=== PATIENT | female | born 1935 | race American Indian/Alaskan Native ===

== ENCOUNTER 2017-08-07 18:17 | Inpatient (IN) | payer MEDICARE, BC ==
[2017-08-07 18:29] VITALS: BMI 28.8
[2017-08-07] MEDS ORDERED: Morphine 2 mg/ml ISec IVP STA (19:13)
[2017-08-07 19:58] LABS: URINE BILIRUBIN NEGATIVE (NEGATIVE); URINE BLOOD NEGATIVE (NEGATIVE); URINE COLOR LIGHT YELLOW (YELLOW); URINE GLUCOSE (UA) NEGATIVE (NEGATIVE); URINE KETONE NEGATIVE (NEGATIVE); URINE LEUKOCYTE ESTERASE SMALL Leu/uL (NEGATIVE); URINE PROTEIN NEGATIVE mg/dL (<30 mg/dL); URINE UROBILINOGEN 0.2 E.U./dL (<1 E.U./dL)
[2017-08-07 20:03] LABS: URINE APPEARANCE CLEAR (CLEAR); URINE BACTERIA TRACE (NEG); URINE RBC 0 - 2 /hpf (0-2)
[2017-08-07 20:06] LABS: BASO # 0.01 K/mm3 (0.0-2.0); BASO % 0.2 % (0.0-3.0); EOS # 0.2 (0.0-0.7); EOS % 3.9 % (1.5-5.0); GRAN # 3.25 (1.4-6.5); GRAN % 69.6 % (50.0-68.0); HEMATOCRIT 34.4 % (36.0-48.0); LYMPH % 21.6 % (22.0-35.0); MEAN CELL VOLUME 90.3 fl (80.0-105.0); MEAN CORPUSCULAR HEMOGLOBIN 29.4 pg (25.0-35.0); MEAN CORPUSCULAR HGB CONC 32.6 g/dl (31.0-37.0); MEAN PLATELET VOLUME 11.1 fl (7.0-11.0); MONO # 0.2 (0.1-0.6); MONO % 4.7 % (1.0-6.0); RED CELL DISTRIBUTION WIDTH 15.6 % (11.5-14.5); WHITE BLOOD COUNT 4.7 10^3/ul (4.5-11.0)
[2017-08-07 20:15] LABS: ALB/GLOB RATIO 1.3 (1.1-1.8); ALKALINE PHOSPHATASE 91 U/L (38-126); ALT/SGPT 18 U/L (7-56); AST/SGOT 22 U/L (14-36); BILIRUBIN,TOTAL 0.4 mg/dL (0.2-1.3); BLOOD UREA NITROGEN 35 mg/dL (7-21); CALCIUM 9.3 mg/dL (8.4-10.5); CARBON DIOXIDE 24 mmol/L (21-33); CHLORIDE 109 mmol/L (98-107); GFR AFRICAN-AMERICAN 37; GLUCOSE,RANDOM 93 mg/dL (70-110); POTASSIUM 4.6 mmol/L (3.6-5.0); SODIUM 141 mmol/L (132-148)
[2017-08-07 20:27] LABS: TROPONIN I < 0.01 ng/mL
--- NOTE | 2017-08-07 20:36 | CT ---
EXAM: CT Lumbar Spine Without Intravenous Contrast EXAM DATE/TIME: 08/07/2017 7:13 PM CLINICAL HISTORY: The patient age is 82 years old and is female; Pain; Lumbago with sciatica; Left; Additional info: Back pain Facility exam id and description: Ct lumbs lumbar spine w/o contrast TECHNIQUE: Axial computed tomography images of the lumbar spine without intravenous contrast. All CT scans at this facility use one or more dose reduction techniques, viz.: automated exposure control; ma/kV adjustment per patient size (including targeted exams where dose is matched to indication; i.e. head); or iterative reconstruction technique. Coronal and sagittal reformatted images were created and reviewed. COMPARISON: No relevant prior studies available. FINDINGS: Vertebrae: The lumbar vertebral bodies are normal in height, without acute fracture. There is abnormal morphology of the right L1 transverse process, which may be developmental or due to prior trauma. There is grade I anterolisthesis of L4 on L5. Discs/spinal canal/neural foramina: Degenerative bulge/osteophyte complexes are identified diffusely within the lumbar spine. There is moderate narrowing of the thecal sac at L4-5, with mild narrowing of the thecal sac at L5-S1. There is narrowing of both lateral recesses at these levels. Neural foraminal narrowing is identified diffusely within the lumbar spine, severe bilateral neural foraminal narrowing at L5-S1. Vasculature: There is atherosclerotic calcification of the abdominal aorta. Gallbladder and bile ducts: The gallbladder is mildly distended with isodense sludge. The gallbladder is incompletely visualized. Kidneys and ureters: There is mild fullness of the right renal collecting system and ureter, without an obstructing calculus. There is no left hydronephrosis. Stomach and bowel: Sigmoid diverticulosis is identified. 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 IMPRESSION: 1. The lumbar vertebral bodies are normal in height, without acute fracture. 2. There is abnormal morphology of the right L1 transverse process, which may be developmental or due to prior trauma. 3. There is grade I anterolisthesis of L4 on L5. 4. Degenerative bulge/osteophyte complexes are identified diffusely within the lumbar spine. There is moderate narrowing of the thecal sac at L4-5, with mild narrowing of the thecal sac at L5-S1. There is narrowing of both lateral recesses at these levels. 5. Neural foraminal narrowing is identified diffusely within the lumbar spine, severe bilateral neural foraminal narrowing at L5-S1. This can be further evaluated with MRI. 6. 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 7. The gallbladder is mildly distended with isodense sludge. The gallbladder is incompletely visualized. 8. Incidental/non-acute findings are described above.
[2017-08-07] MEDS ORDERED: HYDROmorphone 2 mg/ml ISec IVP STA (21:22)
[2017-08-07] MEDS ORDERED: HYDROmorphone 1 mg/ml ISec IVP STA (21:23)
[2017-08-07] MEDS ORDERED: Sodium Chloride 0.9% 1,000 ML IV SCH (21:30)
--- NOTE | 2017-08-07 22:16 | ED PDOC ---
Arrival/HPI - General Chief Complaint: Hip Pain Time Seen by Provider: 08/07/17 19:02 Historian: Patient - History of Present Illness Narrative History of Present Illness (Text): 08/07/17 19:05 Delroy Pickens is an 82 year old female complaining of lower back pain for a few hours. Patient states that her pain worsens with any movement. Patient denies any fever, chills, chest pain, shortness of breath, nausea, vomiting, diarrhea, urinary symptoms, neck pain, headache, dizziness, or any other complaints. Time/Duration: 4-6 hours Symptom Onset: Gradual Symptom Course: Unchanged Activities at Onset: Light Context: Home Past Medical History - Provider Review Nursing Documentation Reviewed: Yes - Infectious Disease Hx of Infectious Diseases: None - Tetanus Immunization Tetanus Immunization: Up to Date - Cardiac Hx Hypertension: Yes Hx Pacemaker: No - Pulmonary Hx Asthma: No Hx Chronic Obstructive Pulmonary Disease (COPD): No Hx Emphysema: No - Neurological Hx Paralysis: No - Renal Hx Renal Disorder: No - Hematological/Oncological Hx Blood Transfusions: No Hx Blood Transfusion Reaction: No - Musculoskeletal/Rheumatological Hx Musculoskeletal Disorders: Yes - Gastrointestinal Hx Gastroesophageal Reflux: No - Psychiatric Hx Psychophysiologic Disorder: No Hx Anxiety: No Hx Bipolar Disorder: No Hx Depression: No Hx Emotional Abuse: No Hx Hallucinations: No Hx Panic Disorder: No Hx Post Traumatic Stress Disorder: No Hx Psychosis: No Hx Physical Abuse: No Hx Schizophrenia: No Hx Sexual Abuse: No Hx Substance Use: No - Past Surgical History Past Surgical History: No Previous - Anesthesia Hx Anesthesia: Yes Hx Anesthesia Reactions: No Hx Malignant Hyperthermia: No - Suicidal Assessment Feels Threatened In Home Enviroment: No Family/Social History - Physician Review Nursing Documentation Reviewed: Yes Family/Social History: No Known Family HX Smoking Status: Never Smoked Hx Alcohol Use: No Hx Substance Use: No Hx Substance Use Treatment: No Allergies/Home Meds Allergies/Adverse Reactions: Allergies No Known Allergies Allergy (Verified 12/31/13 11:38) Home Medications: Home Meds Medication Instructions Recorded Confirmed Hydrochlorothiazide/Valsarta 1 tab PO DAILY 01/07/12 02/03/15 [Diovan Hct 12.5 mg-320 mg] Amlodipine Besylate 10 mg PO DAILY 04/29/12 02/03/15 Review of Systems - Physician Review All systems were reviewed & negative as marked: Yes - Review of Systems Constitutional: absent: Fevers, Night Sweats Eyes: absent: Vision Changes ENT: absent: Hearing Changes Respiratory: absent: SOB, Cough Cardiovascular: absent: Chest Pain Gastrointestinal: absent: Abdominal Pain Genitourinary Female: absent: Dysuria Musculoskeletal: Back Pain. absent: Arthralgias Skin: absent: Rash, Pruritis Neurological: absent: Headache, Dizziness Endocrine: absent: Diaphoresis Hemo/Lymphatic: absent: Adenopathy Psychiatric: absent: Anxiety, Depression Physical Exam Vital Signs Reviewed: Yes Vital Signs Temp Pulse Resp BP Pulse Ox 08/07/17 21:58 57 L 16 135/42 L 96 08/07/17 19:38 90 16 105/79 100 08/07/17 18:28 98.2 F 62 18 147/80 99 Temperature: Afebrile Blood Pressure: Normal Pulse: Regular Respiratory Rate: Normal Appearance: Positive for: Well-Appearing, Non-Toxic, Comfortable Pain Distress: None Mental Status: Positive for: Alert and Oriented X 3 - Systems Exam Head: Present: Atraumatic, Normocephalic Pupils: Present: PERRL Extroacular Muscles: Present: EOMI Conjunctiva: Present: Normal Mouth: Present: Moist Mucous Membranes Neck: Present: Normal Range of Motion Respiratory/Chest: Present: Clear to Auscultation, Good Air Exchange. No: Respiratory Distress, Accessory Muscle Use Cardiovascular: Present: Regular Rate and Rhythm, Normal S1, S2. No: Murmurs Abdomen: Present: Normal Bowel Sounds. No: Tenderness, Distention, Peritoneal Signs Back: Present: Paraspinal Tenderness (on left side) Upper Extremity: Present: Normal Inspection. No: Cyanosis, Edema Lower Extremity: Present: Normal Inspection. No: Edema Neurological: Present: GCS=15, CN II-XII Intact, Speech Normal Skin: Present: Warm, Dry, Normal Color. No: Rashes Psychiatric: Present: Alert, Oriented x 3, Normal Insight, Normal Concentration Medical Decision Making ED Course and Treatment: 08/07/17 22:17 Impression: 82 year old female complaining of lower back pain, worse on left than right, for a few hours tonight. Differential Diagnosis included but are not limited to: Plan: -- EKG -- Urine Culture -- Dilaudid, Morphine, and IV fluids -- Reassess and disposition Prior Visits: Notes and results from previous visits were reviewed. Patient was last seen in the emergency department on 02/03/15 for right upper extremity numbness for a few hours. Patient was discharged home. Progress Notes: 08/07/17 22:31 CT Lumbar Spine Without Intravenous Contrast: Creator : JASON FRAZIER FINDINGS: Vertebrae: The lumbar vertebral bodies are normal in height, without acute fracture. There is abnormal morphology of the right L1 transverse process, which may be developmental or due to prior trauma. There is grade I anterolisthesis of L4 on L5. Discs/spinal canal/neural foramina: Degenerative bulge/osteophyte complexes are identified diffusely within the lumbar spine. There is moderate narrowing of the thecal sac at L4-5, with mild narrowing of the thecal sac at L5-S1. There is narrowing of both lateral recesses at these levels. Neural foraminal narrowing is identified diffusely within the lumbar spine, severe bilateral neural foraminal narrowing at L5-S1. Vasculature: There is atherosclerotic calcification of the abdominal aorta. Gallbladder and bile ducts: The gallbladder is mildly distended with isodense sludge. The gallbladder is incompletely visualized. Kidneys and ureters: There is mild fullness of the right renal collecting system and ureter, without an obstructing calculus. There is no left hydronephrosis. Stomach and bowel: Sigmoid diverticulosis is identified. 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 IMPRESSION: 1. The lumbar vertebral bodies are normal in height, without acute fracture. 2. There is abnormal morphology of the right L1 transverse process, which may be developmental or due to prior trauma. 3. There is grade I anterolisthesis of L4 on L5. 4. Degenerative bulge/osteophyte complexes are identified diffusely within the lumbar spine. There is moderate narrowing of the thecal sac at L4-5, with mild narrowing of the thecal sac at L5-S1. There is narrowing of both lateral recesses at these levels. 5. Neural foraminal narrowing is identified diffusely within the lumbar spine , severe bilateral neural foraminal narrowing at L5-S1. This can be further evaluated with MRI. 6. 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 7. The gallbladder is mildly distended with isodense sludge. The gallbladder is incompletely visualized. 8. Incidental/non-acute findings are described above. 08/07/17 22:33 case d/w dr olson for dr ridley will obs for intractable back pain - Lab Interpretations Lab Results: 08/07/17 19:55 08/07/17 19:55 Lab Results 08/07/17 19:55: Sodium 141, Potassium 4.6, Chloride 109 H, Carbon Dioxide 24, Anion Gap 13, BUN 35 H, Creatinine 1.6 H, Est GFR ( Amer) 37, Est GFR ( Non-Af Amer) 31, Random Glucose 93, Calcium 9.3, Total Bilirubin 0.4, AST 22, ALT 18, Alkaline Phosphatase 91, Troponin I < 0.01, Total Protein 7.0, Albumin 4.0, Globulin 3.0, Albumin/Globulin Ratio 1.3 08/07/17 19:55: WBC 4.7 D, RBC 3.81, Hgb 11.2 L, Hct 34.4 L, MCV 90.3, MCH 29.4 , MCHC 32.6, RDW 15.6 H, Plt Count 188, MPV 11.1 H, Gran % 69.6 H, Lymph % (Auto ) 21.6 L, Alcorn % (Auto) 4.7, Eos % (Auto) 3.9, Baso % (Auto) 0.2, Gran # 3.25, Lymph # 1.0 L, Alcorn # 0.2, Eos # 0.2, Baso # 0.01 08/07/17 19:48: Urine Color Light yellow, Urine Appearance Clear, Urine pH 6.0, Ur Specific [place] 1.015, Urine Protein Negative, Urine Glucose (UA) Negative, Urine Ketones Negative, Urine Blood Negative, Urine Nitrate Negative, Urine Bilirubin Negative, Urine Urobilinogen 0.2, Ur Leukocyte Esterase Small H, Urine RBC 0 - 2, Urine WBC 2 - 5, Ur Epithelial Cells 1 - 3, Urine Bacteria Trace I have reviewed the lab results: Yes - RAD Interpretation Radiology Orders: 08/07/17 19:13 LUMBAR SPINE W/O CONTRAST [CT] Stat - Medication Orders Current Medication Orders: Sodium Chloride (Sodium Chloride 0.9%) 1,000 mls @ 80 mls/hr IV .[id number] MARCIO Last Admin: 08/07/17 21:46 Dose: 80 mls/hr eMAR Start Stop Document 08/07/17 21:46 HI (Rec: 08/07/17 21:46 HI [id number]) Intravenous Solution Start Date 08/07/17 Start Time 21:46 Oxycodone/Acetaminophen (Percocet 5/325 Mg Tab) 1 tab PO Q4H PRN PRN Reason: Pain, moderate (4-7) Stop: 08/10/17 22:31 Discontinued Medications Hydromorphone HCl (Dilaudid) 1 mg IVP STAT STA Stop: 08/07/17 21:24 Last Admin: 08/07/17 21:46 Dose: 1 mg MAR Pain Assessment Document 08/07/17 21:46 HI (Rec: 08/07/17 21:46 [id number]) Pain Reassessment Is this a pain reassessment? Yes Sleep Is patient sleeping during reassessment? No Presence of Pain Presence of Pain Yes Location Left, Right or Bilateral Left Pain Location Body Site Hip Description Description Constant IVP Administration Document 08/07/17 21:46 HI (Rec: 08/07/17 21:46 HI [id number]) Charges for Administration # of IVP Administrations 1 Morphine Sulfate (Morphine) 2 mg IVP STAT STA Stop: 08/07/17 19:14 Last Admin: 08/07/17 19:58 Dose: 2 mg MAR Pain Assessment Document 08/07/17 19:58 HI (Rec: 08/07/17 19:58 HI [id number]) Pain Reassessment Is this a pain reassessment? No Sleep Is patient sleeping during reassessment? No Presence of Pain Presence of Pain Yes Pain Scale Used Pain Scale Used Numeric Location Left, Right or Bilateral Left Pain Location Body Site Hip IVP Administration Document 08/07/17 19:58 HI (Rec: 08/07/17 19:58 HI [id number]) Charges for Administration # of IVP Administrations 1 Re-Assess: MAR Pain Assessment Document 08/07/17 20:58 HI (Rec: 08/07/17 21:46 HI [id number]) Pain Reassessment Is this a pain reassessment? Yes Sleep Is patient sleeping during reassessment? No Presence of Pain Presence of Pain Yes - Scribe Statement The provider has reviewed the documentation as recorded by the Justin Raman Provider Scribe Attestation: All medical record entries made by the Scribe were at my direction and personally dictated by me. I have reviewed the chart and agree that the record accurately reflects my personal performance of the history, physical exam, medical decision making, and the department course for this patient. I have also personally directed, reviewed, and agree with the discharge instructions and disposition Disposition/Present on Arrival - Present on Arrival Any Indicators Present on Arrival: No History of DVT/PE: No History of Uncontrolled Diabetes: No Urinary Catheter: No History of Decub. Ulcer: No History Surgical Site Infection Following: None - Disposition Have Diagnosis and Disposition been Completed?: Yes Diagnosis: Intractable back pain Disposition: HOSPITALIZED Disposition Time: 22:00 Condition: FAIR Referrals: Miguel Edwards Reluc, [Primary Care Provider] - Follow up with primary Forms: [employer] (Eth[place]ian)
[2017-08-07] MEDS ORDERED: Oxycodone/Acetaminophen 5/325 mg Tab PO PRN (22:30)
[2017-08-08] MEDS ORDERED: Pneumococcal 23-Valent Vaccine IM ONE (00:04)
[2017-08-08] MEDS ORDERED: Influenza Vaccine 60 mcg/0.5 mL SYR (4YR UP) IM ONE (00:04)
[2017-08-08] MEDS ORDERED: Barium Sulfate Susp 2.1% w/v, 2.0% w/w 450 mL Bottle PO ONE (08:17)
--- NOTE | 2017-08-08 11:20 | CP.PCM.CON ---
<Oskar Angela - Last Filed: 08/08/17 11:22> History of Present Illness - History of Present Illness History of Present Illness: PGY4 Initial GI Consult Delroy Pickens is a 82F w/ a hx of HTN and anemia who presented to the ED with complaints of left sided pain. Pt reports that the pain started 1.5 weeks ago and the onset was gradual. She notes the pain is located beneath the ribs at the mid-axcillary line on the left side. She states that the pain is sharp. Aggrevating factors are flexion and side bending. She denies any association with food. Pain does not radiate. She notes normal BM with constipation, melena , or BRBPR. She does take iron supplements for anemia. She is able to tolerate regular diet without nausea or vomiting. She recalls having a colonoscopy by Dr. Graham in 2014 years ago for anemia. She does not remember the results, but EMR pathology revealed gastritis and x1 cecal tubular adenoma. CT lumbar done in the Er revealed L4/L5 and L5/S1 foraminal stenosis. PMHx: HTN, anemia PSHx: denies Social Hx: Denies smoking, ETOH, and illicit drug use Family Hx: denies any hx of colon ca ROS: 12-point ROS conducted, neg other than above Past Patient History - Infectious Disease Hx of Infectious Diseases: None - Tetanus Immunizations Tetanus Immunization: Up to Date - Past Social History Smoking Status: Former Smoker - CARDIAC Hx Hypertension: Yes Hx Pacemaker: No - PULMONARY Hx Asthma: No Hx Chronic Obstructive Pulmonary Disease (COPD): No Hx Emphysema: No - NEUROLOGICAL HX Cerebrovascular Accident: No Hx Dementia: No Hx Seizures: No - RENAL Hx Chronic Kidney Disease: No - HEMATOLOGICAL/ONCOLOGICAL Hx Cancer: No - MUSCULOSKELETAL/RHEUMATOLOGICAL Hx Falls: No - GASTROINTESTINAL Hx Gastroesophageal Reflux: No - PSYCHIATRIC Hx Psychophysiologic Disorder: No Hx Anxiety: No Hx Bipolar Disorder: No Hx Depression: No Hx Emotional Abuse: No Hx Hallucinations: No Hx Panic Symptoms: No Hx Post Traumatic Stress Disorder: No Hx Psychosis: No Hx Physical Abuse: No Hx Schizophrenia: No Hx Sexual Abuse: No - SURGICAL HISTORY Hx Surgeries: Yes - ANESTHESIA Hx Anesthesia: Yes Hx Anesthesia Reactions: No Hx Malignant Hyperthermia: No Meds Allergies/Adverse Reactions: Allergies Allergy/AdvReac Type Severity Reaction Status Date / Time No Known Allergies Allergy Verified 12/31/13 11:38 - Medications Medications: Current Medications Amlodipine Besylate (Norvasc) 10 mg PO DAILY COUNTS INCLUDE 234 BEDS AT THE [facility] Last Admin: 08/08/17 10:18 Dose: 10 mg Sodium Chloride (Sodium Chloride 0.9%) 1,000 mls @ 80 mls/hr IV .[id number] COUNTS INCLUDE 234 BEDS AT THE [facility] Last Admin: 08/07/17 21:46 Dose: 80 mls/hr Tramadol HCl (Ultram) 50 mg PO TID PRN PRN Reason: Pain, moderate (4-7) Physical Exam - Constitutional Appears: Well - Head Exam Head Exam: ATRAUMATIC, NORMOCEPHALIC - Eye Exam Eye Exam: Normal appearance - ENT Exam ENT Exam: Mucous Membranes Moist - Respiratory Exam Respiratory Exam: Clear to Auscultation Bilateral, NORMAL BREATHING PATTERN. absent: Rales, Rhonchi, Wheezes, Respiratory Distress - Cardiovascular Exam Cardiovascular Exam: REGULAR RHYTHM, +S1, +S2 - GI/Abdominal Exam GI & Abdominal Exam: Normal Bowel Sounds, Soft. absent: Guarding, Organomegaly , Rigid, Tenderness - Extremities Exam Extremities exam: Negative for: joint swelling, pedal edema - Neurological Exam Neurological exam: Alert, Oriented x3 - Psychiatric Exam Psychiatric exam: Normal Affect, Normal Mood - Skin Skin Exam: Dry, Intact, Normal Color, Warm Results - Vital Signs Recent Vital Signs: Last Vital Signs Temp 98.8 F 08/08/17 08:00 Pulse 80 08/08/17 08:00 Resp 20 08/08/17 08:00 BP 134/53 L 08/08/17 10:18 Pulse Ox 97 08/08/17 08:00 - Labs Result Diagrams: 08/07/17 19:55 08/07/17 19:55 Assessment & Plan - Assessment and Plan (Free Text) Assessment: Delroy Pickens is a 82F w/ hx of anemia and HTn who presents to the ER with left sided flank pain Etiology likely musculoskeletal Musculoskeletal left sided flank pain Anemia Diverticulosis Plan: -no evidence of intraabdominal etiology of pain -CT abd/pelv ordered by primary team -Labs WNL -recommend further management as per primary team -will await CT imaging today -colonscopy and EGD pathology reviewed -continue diet as tolerated -If CT abd revealed no significant pathology, will sign off D/W Dr. Pearce <Kaden Pearce Y - Last Filed: 08/08/17 15:28> Meds - Medications Medications: Current Medications Amlodipine Besylate (Norvasc) 10 mg PO DAILY COUNTS INCLUDE 234 BEDS AT THE [facility] Last Admin: 08/08/17 10:18 Dose: 10 mg Sodium Chloride (Sodium Chloride 0.9%) 1,000 mls @ 80 mls/hr IV .[id number] COUNTS INCLUDE 234 BEDS AT THE [facility] Last Admin: 08/07/17 21:46 Dose: 80 mls/hr Tramadol HCl (Ultram) 50 mg PO TID PRN PRN Reason: Pain, moderate (4-7) Results - Vital Signs Recent Vital Signs: Last Vital Signs Temp 98.8 F 08/08/17 08:00 Pulse 80 08/08/17 08:00 Resp 20 08/08/17 08:00 BP 134/53 L 08/08/17 10:18 Pulse Ox 97 08/08/17 08:00 - Labs Result Diagrams: 08/07/17 19:55 08/07/17 19:55 Attending/Attestation - Attestation I have personally seen and examined this patient.: Yes I have fully participated in the care of the patient.: Yes I have reviewed all pertinent clinical information: Yes Notes (Text): 08/08/17 15:19 I have seen and examined patient with GI fellow. Agree with above documentation with the following additions. In brief, this is an 82 year old female with history of HTN, anemia who presents to hospital with complaint of progressive left sided flank pain for the past 2 weeks. She describes a sharp, 6/10 intensity pain that is non-radiating, worse on movement and not associated with food consumption. She denies dysuria, hematuria, nausea, vomiting, fever/ chills, weight loss, abdominal pain, diarrhea, or NSAID use. She denies any recent mechanical falls. She claims to have had an EGD/colonoscopy nearly 4-5 years ago which showed gastritis and adenomatous polyps. This morning she was able to tolerate full breakfast without difficulty. HTN Anemia Left flank pain - resolved. Likely musculoskeletal in origin, CT L spine shows lumbar foraminal stenosis. - Diet as tolerated - CT abdomen reviewed by me showing no gross intra abdominal abnormalities - Suggest heating pad to affected site twice daily along with short course of NSAID therapy - Recommend outpatient elective surveillance colonoscopy - No ongoing GI issues, will sign off case. Please reconsult as necessary, thank you.
--- NOTE | 2017-08-08 13:18 | CT ---
PROCEDURE: CT Abdomen and Pelvis without intravenous contrast HISTORY: abd pain COMPARISON: None. TECHNIQUE: Without contrast.. Contrast Dose: Radiation dose: Total exam DLP = 894 mGy-cm. This CT exam was performed using one or more of the following dose reduction techniques: Automated exposure control, adjustment of the mA and/or kV according to patient size, and/or use of iterative reconstruction technique. FINDINGS: LOWER THORAX: Unremarkable. LIVER: Unremarkable. No gross lesion or ductal dilatation. GALLBLADDER AND BILE DUCTS: Unremarkable. PANCREAS: Unremarkable. No gross lesion or ductal dilatation. SPLEEN: Unremarkable. ADRENALS: Unremarkable. No mass. KIDNEYS AND URETERS: Unremarkable. No hydronephrosis. No solid mass. VASCULATURE: Unremarkable. No aortic aneurysm. BOWEL: Unremarkable. No obstruction. No gross mural thickening. APPENDIX: Unremarkable. Normal appendix. PERITONEUM: Unremarkable. No free fluid. No free air. LYMPH NODES: Unremarkable. No enlarged lymph nodes. BLADDER: Unremarkable. REPRODUCTIVE: Unremarkable. BONES: No acute fracture. OTHER FINDINGS: None. IMPRESSION: No acute intra-abdominal findings
--- NOTE | 2017-08-08 13:39 | RAD ---
PROCEDURE: Radiographs of the pelvis. HISTORY: lt flank pain COMPARISON: None. FINDINGS: BONES: Pelvic Bones: Unremarkable. Hips: Grossly unremarkable. JOINTS: Sacroiliac Joints: Unremarkable. Pubic Symphysis: Unremarkable. OTHER FINDINGS: None. IMPRESSION: Unremarkable radiographs of the pelvis.
--- NOTE | 2017-08-08 14:01 | CARD ---
APPROVED REPORT EKG Measurement Heart [id number] <Conclusion> Sinus bradycardia Otherwise normal ECG
--- NOTE | 2017-08-08 14:13 | HP ---
HISTORY OF PRESENT ILLNESS: She is an 82-year-old female who presents to the emergency room with few hours of severe low back pain when she came to the emergency room, cannot stand, cannot walk, cannot do anything, writhing in pain. When I saw her this morning, she is having left abdominal pain more than the left low pain, still cannot move much, fairly uncomfortable. PAST MEDICAL HISTORY: She has past medical history of hypertension. PAST SURGICAL HISTORY: No previous surgeries. FAMILY HISTORY: No known family history. SOCIAL HISTORY: No smoker. No drinking. No alcohol. ALLERGIES: NO KNOWN DRUG ALLERGIES. MEDICATIONS: She takes Diovan HCT and amlodipine. REVIEW OF SYSTEMS: No acute vision changes or hearing changes. No sore throat. No shortness of breath. No chest pain. There is abdominal pain on the left side. No problems urinating. There is severe lower back pain on the left side. No skin itching or rashes. No headache or dizziness. No sweating. No anxiety or depression. There is severe left-sided back pain and left side abdominal pain. PHYSICAL EXAMINATION GENERAL: Uncomfortable at this time with pain, on Percocet. Well-appearing. Alert and oriented x3. VITAL SIGNS: She has temperature 98.2, pulse 90, respiratory rate 18, blood pressure 147/80, and O2 sat 96%. HEENT: Head is atraumatic and normocephalic. Extraocular muscles are intact. Pupils are equal and reactive to light and accommodation. Throat is moist. NECK: Supple. HEART: Regular rate. Normal S1 and S2. LUNGS: Decreased breath sounds, but clear to auscultation. ABDOMEN: Soft. Mild tenderness in the left side of the abdomen, maybe mild discomfort. No guarding or rebound. Decreased bowel sounds were present. She has left-sided tenderness. BACK: Tender to palpation first when we poked around. EXTREMITIES: No edema of the lower extremities. NEUROLOGIC: GCS is 15. Cranial nerves II through XII grossly intact. Speech is normal. SKIN: Warm and dry. No apparent rashes or ulcers. Alert and oriented x3. LYMPHATICS: Thyroid is midline. No palpable appreciable lymphadenopathy. LABORATORY DATA: She had multiple tests. She has urine, which has small leukocytes. Sodium 141, potassium 4.6, BUN 35, creatinine 1.6, she is also dehydrated, GFR is 31, sugar is 93. Calcium is 9.3, total bilirubin is 0.4, AST is 22, ALT is 18, alkaline phosphatase 91. Troponin I is less than 0.01. Total protein is 7. Albumin is 4, globulin is 3. White count is 4.7, hemoglobin 11.2, hematocrit 34.4, platelets 188. She had a lumbar spine CT, which showed lumbar vertebral bodies with normal height without acute fractures. There was abnormal pathology of the right L1 transverse process may be developmental or trauma. Grade 1 anterolisthesis at L4-L5, degenerative bulge within the lumbar spine, moderate narrowing of the thecal sac L4-L5, mild narrowing of the thecal sac L5-S1, neuroforaminal narrowing is identified, diffuse disc bulge in the lumbar spine, severe bilateral neuroforaminal L5-S1. 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 Gallbladder was mildly distended and sludge, gallbladder is incompletely visualized. They need to get an MRI of the lumbar spine, I will order that. Continue with the IV fluids. I ordered an MRI. I have ordered Orthopedics and GI for the abdominal pain, for low back pain. We will continue with the aggressive treatment and care and change it to inpatient because she is probably going to need to have subacute rehab as she looks weaker and she looks like she is in pain. I think she will need to do that before she goes on. Candido Greco DO MTDD
--- NOTE | 2017-08-08 14:33 | MRI ---
PROCEDURE: MR LUMBAR SPINE WITHOUT CONTRAST HISTORY: pain COMPARISON: None available. TECHNIQUE: Multiecho multiplanar sequences were performed through the lumbar spine without the use of intravenous contrast. FINDINGS: Normal lumbar lordosis. Vertebral body heights are preserved. Marrow signal unremarkable. Conus medullaris unremarkable at the level of T12 Paraspinal soft tissues are unremarkable. T12-L1: No disc herniation, spinal canal stenosis or neural foraminal narrowing. L1-2: No disc herniation, spinal canal stenosis or neural foraminal narrowing. Mild disc degeneration L2-3: No disc herniation, spinal canal stenosis or neural foraminal narrowing. Mild disc bulge and degeneration. Mild facet arthropathy L3-4: No disc herniation, spinal canal stenosis or neural foraminal narrowing. Mild disc bulge. Mild facet arthropathy L4-5: There is severe facet arthropathy. There is a moderate disc bulge. This produces a severe degree of central canal stenosis. This is best seen on image 7 series 7 L5-S1: There is severe disc degeneration and severe foraminal stenosis bilaterally OTHER FINDINGS: None. IMPRESSION: Severe central canal stenosis at L4-5. Severe bilateral foraminal stenosis at L5-S1.
--- NOTE | 2017-08-08 17:18 | US ---
HISTORY: evaluate GB, r/o biliar stones COMPARISON: 12/31/2013 abdominal ultrasound TECHNIQUE: Sonographic evaluation of the abdomen. FINDINGS: LIVER: Measures 11.6 cm. Normal echogenicity of the liver parenchyma. Patent portal vein. Portal venous flow: Hepatopetal. UnremarkeableNo mass. No intrahepatic bile duct dilatation. GALLBLADDER: Cholelithiasis. Negative study for gallbladder wall thickening, pericholecystic fluid, sonographic Odonnell's sign. Incidental finding(s): Sludge identified COMMON BILE DUCT: Measures 4.5 mm. No stones. No dilatation. PANCREAS: Unremarkable as visualized. No mass. No ductal dilatation. RIGHT KIDNEY: Measures 5.4 x 9.3cm. Normal echogenicity. No calculus, mass, or hydronephrosis. LEFT KIDNEY: Measures 5.1 x 9.5cm. Normal echogenicity. No calculus, mass, or hydronephrosis. SPLEEN: Normal in size and contour. No mass. AORTA: No aneurysmal dilatation. IVC: Unremarkable. OTHER FINDINGS: None. IMPRESSION: Cholelithiasis. No sonographic evidence of acute cholecystitis.
[2017-08-09 07:46] VITALS: BP 167/59
--- NOTE | 2017-08-09 07:48 | CON ---
DATE: ORTHOPEDIC CONSULTATION HISTORY OF PRESENT ILLNESS: An 82-year-old female in room 566, bed 2 with significant history of left flank pain for 2 days prior to admission with no history of fall or trauma and she does live alone. Does her own house work. Can ambulate without assistance of a cane or walker. X-rays of lumbar spine shows chronic osteoarthritis of lumbosacral spine with past history that she did have workup for renal calculi possible back in 01/25/2017, but she does not have any radiating pain to the groin and palpation shows some left flank pain and tenderness to palpation. ASSESSMENT AND PLAN: I am going to ask physical therapy to evaluate her and ambulate with a cane and warm compressors to the left flank and she is going for diagnostic contrast studies today for abdominal pain. The back does not appear to be producing any sciatica and there is no significant spinal stenosis at this time on the CAT scan of the lumbar spine, but I will order an x-ray of pelvis to make sure there is no pelvic osseous problems. I will follow her with you for left low back pain and flank pain to evaluate for arthritis of the hips or sacrum and has osteoarthritis of lumbar spine. Meet Mcqueen DO
[2017-08-09 08:24] VITALS: PULSE 54; RESP 18; TEMP 97.6; O2SAT 96
--- NOTE | 2017-08-09 09:49 | PN ---
DATE: 08/09/2017 SUBJECTIVE: An 82-year-old female, in room 566, bed 2. The patient this morning does feel better in her left flank, did not have a bad night and she said the pain has dissipated and her pelvis x-ray was within normal limits for any obvious lesions and no arthritis of the hips. The lumbar spine does shows significant spinal stenosis at L4-5 area, which is not contributory to her symptoms, but this could cause weakness of her lower legs with symptomatic and decrease ability to ambulate because it will have weakness to the quadriceps and the knees, but if she needs relief from symptoms of lower extremity weakness, she can consider an epidural by using one of the Anesthesia doctors for epidurals for pain relief and decrease the swelling from the stenosis. If that need to be done, they can probably do it here at [facility], has doctors that give epidurals for relief of the spinal stenosis of the lumbar spine. Meantime, we will keep doing therapy. Meet Mcqueen DO
--- NOTE | 2017-08-10 07:46 | DS ---
SUBJECTIVE: I saw her this morning. She is feeling great, sitting up, walking to the bathroom. No more pain, no abdominal pain, no more hip pain anymore. PHYSICAL EXAMINATION: VITAL SIGNS: She has a 97.6 temp, 54 pulse, 167/59 blood pressure, 18 respiratory rate, 96% O2 sat on room air. HEENT: Head is atraumatic and normocephalic. HEART: Regular rate. LUNGS: Clear to auscultation. ABDOMEN: Soft. Positive bowel sounds. Nontender. EXTREMITIES: She can move all 4 extremities. She walked to the bathroom. No edema. I am waiting for physical therapy to give me their advice services. She is on Norvasc, IV fluids, and tramadol, also gave her Cipro for positive UTI, which resulted in the urinalysis for lab today. No lab is back. Not sure why it was done, but there is a gram negative rods in the urine. She was seen by GI and Orthopedics. She had a bunch of tests. We will go through them. osteoarthritis of the spine. GI, no evidence of intra-abdominal issues. She said it resolved where the flank pain was. She had an unremarkable pelvis x-ray. Ultrasound of the abdomen, cholelithiasis, and no evidence of acute issues. Lumbar MRI was done showed severe central canal stenosis L4-L5, several bilateral foraminal stenosis L5-S1. She is doing better. She is walking better, and I will see what physical therapy says, but she should be discharged. She was here with severe abdominal pain, intractable abdominal pain, intractable hip pain, and then UTI, little dehydrated and she will go home on her medications in the OCT. She is to follow with me in 4 to 5 days. Candido Greco DO cc: MTDD
== END 2017-08-09 12:29 | disposition home or self-care (01) | DRG 552 ==
LOC: ED 18:17 → ERH 22:25 → 5RNO 23:13 → OBSVTOIN 08-08 08:19
PROVIDERS: ADMIT Family Medicine; ATTEND Family Medicine
DX: M47.896 Other spondylosis, lumbar region (principal); N39.0 Urinary tract infection, site not specified; E86.0 Dehydration; M48.061 Spinal stenosis, lumbar region without neurogenic claudication; D64.9 Anemia, unspecified; K80.20 Calculus of gallbladder without cholecystitis without obstruction; I10 Essential (primary) hypertension; K29.70 Gastritis, unspecified, without bleeding; B96.89 Other specified bacterial agents as the cause of diseases classified elsewhere; Z87.891 Personal history of nicotine dependence